=== PATIENT | male | born 1990 | race Caucasian/White ===

== ENCOUNTER 2020-10-23 10:12 | Emergency (ER) | payer OTHER ==
[2020-10-23 10:26] VITALS: BP 130/95; PULSE 86; TEMP 97.9; BMI 28.8
== END 2020-10-23 12:20 | disposition home or self-care (01) ==
LOC: JER 10:12
DX: U07.1 COVID-19 (principal); R07.89 Other chest pain
CPT/HCPCS: 71046-TC-FY; 93005; 93010; 99284-25